=== PATIENT | male | born 1940 | race African-American/Black ===

== ENCOUNTER 2018-04-18 05:04 | Inpatient (IN) ==
[2018-04-17 12:09] LABS: Basophils % 0.8 % (0.0-0.8); Eosinophils # 0.4 10*3/uL (0.0-0.87); Eosinophils % 7.6 % (0.00-10.9); Hematocrit 37.5 VOL% (42.0-52.0); Hemoglobin 13.3 GM/DL (14.0-18.0); Immature Granulocytes % 0.2 %; Immature Granulocytes Absolute 0.01 #; Lymphocytes % 41.5 % (21.2-54.2); Mean Corpuscular HGB Conc 35.5 GM/DL (32-36); Mean Corpuscular Hemoglobin 32 PG (27-34); Mean Corpuscular Volume 89.1 FL (87-102); Mean Platelet Volume 8.7 FL (9.6-12.0); Monocytes # 0.5 10*3/uL (0.11-0.8); Monocytes % 9.7 % (1.7-12.7); Neutrophils % 40.2 % (38.7-73.9); Platelet Count 200 T/CUMM (130-400); Red Blood Count 4.21 MC/CUMM (3.8-5.5); Red Cell Distribution Width 12.4 % (9.3-17.3); White Blood Count 4.9 T/CUMM (4-12)
[2018-04-17 12:14] LABS: Apearance,Urine CLEAR (Clear); Bilirubin,Urine Negative (Negative); Blood, Urine Negative (Negative); Glucose,Urine (UA) Negative (Negative); Hyaline Casts,Urine 1 /LPF (0-3); Ketones,Urine Negative (Negative); Mucus,Urine Occasional /LPF (Occasional); Nitrite,Urine Negative (Negative); Protein,Urine Negative; Urine Color Yellow (Yellow); Urine Specific Gravity 1.015 (1.001-1.035); Urine Urobilinogen < 2.0 EU/DL (0.2-1.0); WBC,Urine 1 /HPF (0-6)
[2018-04-17 12:24] LABS: PT Patient Result 10.6 SECS; Partial Thromboplastin Time 29.2 SECS (0-40)
[2018-04-17 12:27] LABS: Calcium 8.7 MG/DL (8.5-10.1); Osmolality,Calculated 281.3 MOS/KG (273-304); Potassium 4.1 MMOL/L (3.5-5.1)
[~2018-04-18 05:04] MED LIST: SODIUM CHLORIDE 0.9% 1,000 ML IV PRN
[2018-04-18] MEDS ORDERED: PAPAVERINE 60 MG/2 ML VIAL ONE (05:16)
[2018-04-18] MEDS ORDERED: TISSUE ADHESIVE 1 EACH APPLICATOR TOP ONE (05:16)
[2018-04-18] MEDS ORDERED: VANCOMYCIN 1,000 MG VIAL ONE (05:17)
[2018-04-18] MEDS ORDERED: CEFUROXIME 1,500 MG VIAL ONE (05:58)
[2018-04-18] MEDS ORDERED: CEFUROXIME INJ 1,500 MG in SYRINGE 1 EACH IV ONE (06:00)
[2018-04-18] MEDS: LACTATED RINGERS 1,000 ML IV SCH (06:10)
[2018-04-18] MEDS ORDERED: AMINOCAPROIC ACID 5,000 MG/20 ML VIAL IV ONE (06:27)
[2018-04-18] MEDS ORDERED: LORazepam 1 MG TABLET PO ONE (06:36)
[2018-04-18 07:52] LABS: ABG Base Excess 0.5 MMOL/L (-2.5-2.5); ABG HCO3 24.9 MMOL/L (20-26); ABG PCO2 36.4 MM HG (35-48); ABG PH 7.434 (7.35-7.45); ABG TCO2 21.7 MMOL/L (23-27); Glucose Heart Surgery 107 MG/DL (74-106); Hematocrit Heart Surgery 34.9 PERCENT (42-52); Hemoglobin Heart Surgery 11.3 G/DL (14.0-18.0); Ionized Calcium Arterial 1.28 MMOL/L (1.21-1.46); PCO2 Patient Temp Arterial 36.4 MMHG; PH Patient Temp Arterial 7.434; Patient Temperature 37 CELCIUS; Potassium Heart/CVR 3.8 MMOL/L (3.5-5.1); Sodium Heart/CVR 139 MMOL/L (135-145)
[2018-04-18 08:09] LABS: Apearance,Urine CLEAR (Clear); Bilirubin,Urine Negative (Negative); Blood, Urine Negative (Negative); Glucose,Urine (UA) Negative (Negative); Ketones,Urine Negative (Negative); Mucus,Urine Occasional /LPF (Occasional); Nitrite,Urine Negative (Negative); Protein,Urine Negative; RBC,Urine 1 /HPF (0-4); Urine Color Yellow (Yellow); Urine Specific Gravity 1.012 (1.001-1.035); Urine Urobilinogen < 2.0 EU/DL (0.2-1.0); WBC,Urine <1 /HPF (0-6)
[2018-04-18] MEDS ORDERED: PHENYLEPHRINE DRIP 40 MG/250 ML PREMIX IV ONE (08:47)
[2018-04-18] MEDS ORDERED: CALCIUM CHLORIDE 1,000 MG/10 ML SYRINGE IV ONE (08:47)
[2018-04-18] MEDS ORDERED: POTASSIUM CHLORIDE RIDER 100 ML IV ONE (08:47)
[2018-04-18] MEDS ORDERED: NITROGLYCERIN DRIP 0 MG/0 ML BOTTLE IV ONE (08:48)
[2018-04-18] MEDS ORDERED: SODIUM BICARBONATE 50 MEQ/50 ML SYRINGE IV ONE ×2 (08:48→10:45)
[2018-04-18] MEDS ORDERED: EPINEPHrine 1 MG/10 ML SYRINGE ONE (08:49)
[2018-04-18] MEDS ORDERED: ALBUMIN 5% 12.5 GM/250 ML VIAL IV ONE ×3 (08:49→12:46)
[2018-04-18 09:14] LABS: Hemoglobin Heart Surgery 7.8 G/DL (14.0-18.0); PCO2 Patient Temp Venous 25.2 MM HG; PH Patient Temp Venous 7.59; PO2 Patient Temp Venous 38.2 MM HG; Potassium Heart/CVR 4.7 MMOL/L (3.5-5.1); VBG Base Excess 1.8 MEQ/L (0-4); VBG HCO3 24.2 MEQ/L (24-28); VBG Oxygen Saturation 83.8 %; VBG PCO2 28.7 MMHG (41-51); VBG PH 7.543; VBG PO2 47.2 MMHG (17-40)
[2018-04-18 09:58] LABS: Hemoglobin Heart Surgery 9.1 G/DL (14.0-18.0); PCO2 Patient Temp Venous 29.7 MM HG; PH Patient Temp Venous 7.532; PO2 Patient Temp Venous 56.5 MM HG; Potassium Heart/CVR 4.6 MMOL/L (3.5-5.1); VBG Base Excess 1.7 MEQ/L (0-4); VBG Oxygen Saturation 93.1 %; VBG PCO2 33.9 MMHG (41-51); VBG PH 7.486; VBG PO2 69.3 MMHG (17-40)
[2018-04-18 10:19] LABS: Hemoglobin Heart Surgery 8.2 G/DL (14.0-18.0); PCO2 Patient Temp Venous 37.1 MM HG; PH Patient Temp Venous 7.453; PO2 Patient Temp Venous 42.9 MM HG; Potassium Heart/CVR 4.7 MMOL/L (3.5-5.1); VBG Base Excess 1.4 MEQ/L (0-4); VBG HCO3 25.4 MEQ/L (24-28); VBG Oxygen Saturation 74.8 %; VBG PCO2 37.1 MMHG (41-51); VBG PH 7.453; VBG PO2 42.9 MMHG (17-40)
[2018-04-18] MEDS ORDERED: THROMBIN TOPICAL (RECOMBINANT) 5,000 UNIT VIAL TOP ONE (10:42)
[2018-04-18] MEDS ORDERED: DEXTROSE 5% KCL 20 MEQ 20 MEQ/1,000 ML BAG IV ONE (10:44)
[2018-04-18] MEDS ORDERED: PROTAMINE SULFATE 250 MG/25 ML VIAL IV ONE (10:45)
[2018-04-18] MEDS ORDERED: ALBUMIN 25% 25 GM/100 ML VIAL IV ONE (10:45)
[2018-04-18] MEDS ORDERED: methylPREDNISolone SOD SUC 1,000 MG/8 ML VIAL ONE (10:45)
[2018-04-18] MEDS ORDERED: MAGNESIUM SULFATE 10 GM/20 ML VIAL IV ONE (10:45)
[2018-04-18] MEDS ORDERED: MANNITOL 12.5 GM/50 ML VIAL IV ONE (10:45)
[2018-04-18] MEDS ORDERED: HEPARIN 10,000 UNIT/10 ML VIAL ONE (10:45)
[2018-04-18] MEDS ORDERED: FUROSEMIDE 20 MG/2 ML VIAL ONE (10:46)
[2018-04-18 10:54] LABS: ABG Base Excess -1.3 MMOL/L (-2.5-2.5); ABG HCO3 23.3 MMOL/L (20-26); ABG PCO2 34.3 MM HG (35-48); ABG PH 7.427 (7.35-7.45); ABG TCO2 21.2 MMOL/L (23-27); Ionized Calcium Arterial 1.18 MMOL/L (1.21-1.46); Potassium Heart/CVR 3.9 MMOL/L (3.5-5.1); Sodium Heart/CVR 136 MMOL/L (135-145)
[2018-04-18 10:55] LABS: Glucose Heart Surgery 176 MG/DL (74-106); Hematocrit Heart Surgery 24.2 PERCENT (42-52); Hemoglobin Heart Surgery 7.8 G/DL (14.0-18.0); PCO2 Patient Temp Arterial 34.3 MMHG; PH Patient Temp Arterial 7.427; Patient Temperature 37 CELCIUS
[2018-04-18] MEDS: SODIUM CHLORIDE 0.45% 1,000 ML IV SCH (12:00)
[2018-04-18] MEDS ORDERED: SODIUM CHLORIDE 0.9% 250 ML IV PRN (12:01)
[2018-04-18] MEDS ORDERED: DEXTROSE 50% 25 GM/50 ML VIAL IV PRN ×2 (12:01)
[2018-04-18] MEDS ORDERED: MAGNESIUM SULF RIDER 2 GM in PREMIX 1 EACH IV PRN (12:01)
[2018-04-18] MEDS ORDERED: MAGNESIUM SULF RIDER 4 GM in PREMIX 1 EACH IV PRN (12:01)
[2018-04-18] MEDS ORDERED: INSULIN REGULAR 100 UNIT/ML IV PRN (12:01)
[2018-04-18] MEDS ORDERED: CHLORHEXIDINE 4% SOLN 118 ML BOTTLE TOP PRN (12:01)
[2018-04-18] MEDS ORDERED: CALCIUM CHLORIDE 1,000 MG/10 ML SYRINGE IV PRN (12:01)
[2018-04-18] MEDS ORDERED: ACETAMINOPHEN 650 MG SUPP RECTAL PRN (12:01)
[2018-04-18] MEDS: ALBUMIN 5% 12.5 GM in PREMIX 1 EACH IV PRN ×4 (12:13→15:18)
[2018-04-18] MEDS ORDERED: HEPARIN/NACL 0.9% 2 UNITS/ML 500 ML IV ONE (12:17)
[2018-04-18] MEDS ORDERED: PHENYLEPHRINE DRIP 20 MG/250 ML PREMIX IV ONE (12:17)
[2018-04-18] MEDS ORDERED: CALCIUM CHLORIDE 1,000 MG/10 ML VIAL IV ONE (12:17)
[2018-04-18] MEDS ORDERED: VECURONIUM 10 MG VIAL IV ONE (12:18)
[2018-04-18] MEDS ORDERED: SODIUM CHLORIDE 0.9% 250 ML IV ONE (12:18)
[2018-04-18] MEDS ORDERED: SODIUM CHLORIDE 0.9% 100 ML IV ONE (12:18)
[2018-04-18] MEDS ORDERED: SUFentanil 250 MCG/5 ML AMP ONE (12:18)
[2018-04-18] MEDS ORDERED: LACTATED RINGERS 1,000 ML IV ONE (12:18)
[2018-04-18] MEDS ORDERED: MIDAZOLAM 10 MG/2 ML VIAL ONE (12:18)
[2018-04-18] MEDS ORDERED: SEVOFLURANE 1 UNIT/15 MINUTE INH ONE (12:18)
[2018-04-18] MEDS ORDERED: NITROGLYCERIN DRIP 50 MG/250 ML BOTTLE IV ONE (12:18)
[2018-04-18] MEDS: SODIUM CHLORIDE 0.9% 1,000 ML IV PRN ×4 (12:21→17:15)
[2018-04-18] MEDS ORDERED: INSULIN REGULAR DRIP 100 ML IV SCH (12:30)
[2018-04-18] MEDS ORDERED: SODIUM CHLORIDE 0.45% 1,000 ML IV SCH (12:30)
[2018-04-18 12:48] LABS: ABG Base Excess -1.5 MMOL/L (-2.5-2.5); ABG HCO3 23.2 MMOL/L (20-26); ABG PCO2 29.5 MM HG (35-48); ABG PH 7.476 (7.35-7.45); ABG TCO2 20.8 MMOL/L (23-27); Glucose Heart Surgery 138 MG/DL (74-106); Hematocrit Heart Surgery 18.2 PERCENT (42-52); Potassium Heart/CVR 3.7 MMOL/L (3.5-5.1)
[2018-04-18 12:50] LABS: Basophils % 0.2 % (0.0-0.8); Eosinophils # 0.1 10*3/uL (0.0-0.87); Eosinophils % 1.2 % (0.00-10.9); Hemoglobin Heart Surgery 5.8 G/DL (14.0-18.0); Immature Granulocytes % 0.5 %; Immature Granulocytes Absolute 0.03 #; Lymphocytes # 0.8 10*3/uL (1.4-4.0); Lymphocytes % 13.1 % (21.2-54.2); Mean Corpuscular HGB Conc 36.3 GM/DL (32-36); Mean Corpuscular Hemoglobin 33 PG (27-34); Mean Corpuscular Volume 89.7 FL (87-102); Mean Platelet Volume 8.8 FL (9.6-12.0); Monocytes # 0.3 10*3/uL (0.11-0.8); Monocytes % 4.9 % (1.7-12.7); Neutrophils # 4.8 10*3/uL (1.4-7.4); Neutrophils % 80.1 % (38.7-73.9); Platelet Count 140 T/CUMM (130-400); Red Blood Count 1.75 MC/CUMM (3.8-5.5); Red Cell Distribution Width 12.3 % (9.3-17.3)
[2018-04-18 12:55] LABS: Hemoglobin 5.7 GM/DL (14.0-18.0)
[2018-04-18 12:56] LABS: Hematocrit 15.7 VOL% (42.0-52.0); INR 1.2; PT Patient Result 12.7 SECS
[2018-04-18 13:08] LABS: Lactic Acid 4.4 MMOL/L (0.4-2.0)
[2018-04-18] MEDS: POTASSIUM CHLORIDE RIDER 20 MEQ in PREMIX 1 EACH IV PRN ×2 (13:28→16:39)
[2018-04-18 13:31] LABS: Blood Urea Nitrogen 16 MG/DL (7-18); Calcium 9.8 MG/DL (8.5-10.1); Glucose 138 MG/DL (74-106); Potassium 3.9 MMOL/L (3.5-5.1); Sodium 143 MMOL/L (136-145)
[2018-04-18] MEDS: POTASSIUM CHLORIDE RIDER 10 MEQ in PREMIX 1 EACH IV PRN ×2 (14:00→18:39)
[2018-04-18] MEDS: INSULIN REGULAR 100 UNIT/ML SUBCUT SCH ×3 (16:00→20:24)
[2018-04-18 16:20] LABS: ABG HCO3 18.5 MMOL/L (20-26); ABG Oxygen Saturation 97.7 % (95-100); ABG PCO2 28.2 MM HG (35-48); ABG PH 7.434 (7.35-7.45); ABG TCO2 19.3 MMOL/L (23-27); Glucose Heart Surgery 146 MG/DL (74-106); Hemoglobin Heart Surgery 8.3 G/DL (14.0-18.0)
[2018-04-18] MEDS ORDERED: INFLUENZA VIRUS VACCINE 0.5 ML SYRINGE IM ONE (18:04)
[2018-04-18 18:21] LABS: ABG Base Excess -3.8 MMOL/L (-2.5-2.5); ABG HCO3 20.6 MMOL/L (20-26); ABG Oxygen Saturation 97.5 % (95-100); ABG PH 7.388 (7.35-7.45); ABG PO2 116.9 MM HG (80-95); ABG TCO2 21.7 MMOL/L (23-27); Glucose Heart Surgery 157 MG/DL (74-106); Hemoglobin Heart Surgery 9.8 G/DL (14.0-18.0); Potassium Heart/CVR 4.6 MMOL/L (3.5-5.1)
[2018-04-18] MEDS: CEFUROXIME INJ 1,500 MG in SYRINGE 1 EACH IV SCH (19:48)
[2018-04-18] MEDS: MORPHINE 4 MG/1 ML VIAL IV PRN (20:17)
[2018-04-18] MEDS ORDERED: METOPROLOL TARTRATE 5 MG/5 ML VIAL IV ONE (20:37)
[2018-04-18] MEDS: CHLORHEXIDINE 0.12% ORAL RINSE 60 ML BOTTLE SWISH/SPIT SCH (20:40)
[2018-04-18] MEDS: ONDANSETRON 4 MG/2 ML VIAL IV PRN (22:19)
[2018-04-19] MEDS: SODIUM CHLORIDE 0.45% 1,000 ML IV SCH ×3 (00:25→21:30)
[2018-04-19] MEDS: INSULIN REGULAR 100 UNIT/ML SUBCUT SCH ×7 (00:27→23:58)
[2018-04-19] MEDS: MORPHINE 4 MG/1 ML VIAL IV PRN ×2 (00:52→07:33)
[2018-04-19] MEDS: MORPHINE 10 MG/1 ML VIAL IV PRN ×2 (02:14→10:44)
[2018-04-19 04:19] LABS: ABG Base Excess -15.3 MMOL/L (-2.5-2.5); ABG HCO3 11.2 MMOL/L (20-26); ABG Oxygen Saturation 96.4 % (95-100); ABG PO2 105.7 MM HG (80-95); ABG TCO2 12.1 MMOL/L (23-27); Glucose Heart Surgery 217 MG/DL (74-106); Hemoglobin Heart Surgery 10.4 G/DL (14.0-18.0); Potassium Heart/CVR 4.2 MMOL/L (3.5-5.1)
[2018-04-19 04:20] LABS: ABG PH 7.206 (7.35-7.45)
[2018-04-19 04:21] LABS: Basophils % 0.1 % (0.0-0.8); Hematocrit 29.3 VOL% (42.0-52.0); Immature Granulocytes % 0.5 %; Immature Granulocytes Absolute 0.08 #; Lymphocytes # 0.5 10*3/uL (1.4-4.0); Lymphocytes % 3.6 % (21.2-54.2); Mean Corpuscular HGB Conc 33.4 GM/DL (32-36); Mean Corpuscular Hemoglobin 31 PG (27-34); Mean Corpuscular Volume 91.8 FL (87-102); Mean Platelet Volume 9.7 FL (9.6-12.0); Monocytes # 0.9 10*3/uL (0.11-0.8); Monocytes % 5.8 % (1.7-12.7); Neutrophils # 13.6 10*3/uL (1.4-7.4); Platelet Count 260 T/CUMM (130-400); Red Blood Count 3.19 MC/CUMM (3.8-5.5); White Blood Count 15.1 T/CUMM (4-12)
[2018-04-19 04:25] LABS: Hemoglobin 9.8 GM/DL (14.0-18.0)
[2018-04-19 04:45] LABS: Calcium 8.3 MG/DL (8.5-10.1); Potassium 4.2 MMOL/L (3.5-5.1)
[2018-04-19] MEDS: POTASSIUM CHLORIDE RIDER 20 MEQ in PREMIX 1 EACH IV PRN ×2 (04:47→09:51)
[2018-04-19] MEDS ORDERED: SODIUM BICARBONATE 50 MEQ/50 ML SYRINGE IV ONE ×2 (04:58→05:30)
[2018-04-19 05:07] LABS: Band Neutrophils 3 % (0-10); Lymphocytes 5 % (20-55); Segmented Neutrophils 91 % (50-85); Total Cells Counted 100
[2018-04-19 05:08] LABS: Burr Cells Few; Platelet Estimate Normal
[2018-04-19 05:27] LABS: Lactic Acid 10.8 MMOL/L (0.4-2.0)
[2018-04-19] MEDS: ONDANSETRON 4 MG/2 ML VIAL IV PRN (06:34)
[2018-04-19 06:43] LABS: ABG Base Excess -10.6 MMOL/L (-2.5-2.5); ABG PCO2 30.8 MM HG (35-48); ABG PH 7.294 (7.35-7.45); ABG TCO2 13.8 MMOL/L (23-27); Glucose Heart Surgery 206 MG/DL (74-106); Hemoglobin Heart Surgery 9.7 G/DL (14.0-18.0); Potassium Heart/CVR 4.4 MMOL/L (3.5-5.1)
[2018-04-19] MEDS: LACTATED RINGERS 1,000 ML IV SCH (06:44)
[2018-04-19] MEDS ORDERED: MIDAZOLAM 2 MG/2 ML VIAL IV ONE (06:48)
[2018-04-19] MEDS: MIDAZOLAM 2 MG/2 ML VIAL IV PRN ×2 (06:51→07:54)
[2018-04-19] MEDS: SODIUM BICARB INJ 50 MEQ in SODIUM CHLORIDE 0.45% 950 ML IV SCH ×2 (07:09→16:02)
[2018-04-19] MEDS ORDERED: PROPOFOL 1,000 MG/100 ML BOTTLE IV ONE (08:25)
[2018-04-19] MEDS ORDERED: FUROSEMIDE 40 MG/4 ML VIAL IV ONE (08:30)
[2018-04-19] MEDS: PROPOFOL 1,000 MG/100 ML BOTTLE IV SCH ×3 (08:31→20:27)
[2018-04-19] MEDS ORDERED: ASPIRIN EC 325 MG TABLET PO SCH (09:00)
[2018-04-19] MEDS: CEFUROXIME INJ 1,500 MG in SYRINGE 1 EACH IV SCH ×2 (09:02→20:26)
[2018-04-19] MEDS ORDERED: ALBUMIN 5% 12.5 GM in PREMIX 1 EACH IV ONE (09:29)
[2018-04-19] MEDS ORDERED: LACTATED RINGERS 500 ML IV ONE (09:33)
[2018-04-19] MEDS: FUROSEMIDE 40 MG TABLET PO SCH (09:42)
[2018-04-19] MEDS: PANTOPRAZOLE 40 MG VIAL IV SCH (09:42)
[2018-04-19] MEDS: CHLORHEXIDINE 0.12% ORAL RINSE 60 ML BOTTLE SWISH/SPIT SCH ×2 (09:48→20:27)
[2018-04-19] MEDS: ALBUMIN 5% 25 GM in PREMIX 1 EACH IV ONE ×2 (10:17→10:19)
[2018-04-19 11:11] LABS: Lactic Acid 5.1 MMOL/L (0.4-2.0)
[2018-04-19] MEDS: METOPROLOL TARTRATE 25 MG TABLET PO SCH ×2 (12:51→20:26)
[2018-04-19] MEDS: ATORVASTATIN 40 MG TABLET PO SCH (20:26)
[2018-04-20] MEDS: MORPHINE 10 MG/1 ML VIAL IV PRN (00:11)
[2018-04-20] MEDS: ALBUMIN 5% 12.5 GM in PREMIX 1 EACH IV PRN (01:36)
[2018-04-20 02:09] LABS: ABG Base Excess 2.7 MMOL/L (-2.5-2.5); ABG HCO3 26.2 MMOL/L (20-26); ABG Oxygen Saturation 94.8 % (95-100); ABG PCO2 35.7 MM HG (35-48); ABG PH 7.484 (7.35-7.45); ABG PO2 79.8 MM HG (80-95); ABG TCO2 27.3 MMOL/L (23-27)
[2018-04-20 02:14] LABS: Basophils % 0.1 % (0.0-0.8); Eosinophils % 0.1 % (0.00-10.9); Hemoglobin 7.3 GM/DL (14.0-18.0); Immature Granulocytes % 0.8 %; Immature Granulocytes Absolute 0.07 #; Lymphocytes # 1.2 10*3/uL (1.4-4.0); Lymphocytes % 12.9 % (21.2-54.2); Mean Corpuscular HGB Conc 34.8 GM/DL (32-36); Mean Corpuscular Hemoglobin 32 PG (27-34); Mean Corpuscular Volume 90.9 FL (87-102); Mean Platelet Volume 9.9 FL (9.6-12.0); Monocytes # 0.8 10*3/uL (0.11-0.8); Monocytes % 9.1 % (1.7-12.7); Neutrophils # 6.8 10*3/uL (1.4-7.4); Red Blood Count 2.31 MC/CUMM (3.8-5.5); Red Cell Distribution Width 14.2 % (9.3-17.3); White Blood Count 8.9 T/CUMM (4-12)
[2018-04-20 02:15] LABS: Platelet Count 109 T/CUMM (130-400)
[2018-04-20 02:27] LABS: Calcium 7.3 MG/DL (8.5-10.1)
[2018-04-20 02:53] LABS: Hypochromasia 1+; Platelet Estimate Adequate
[2018-04-20 02:54] LABS: Anisocytosis 1+; Microcytosis 1+
[2018-04-20] MEDS ORDERED: FUROSEMIDE 40 MG/4 ML VIAL IV ONE ×2 (03:00→14:30)
[2018-04-20] MEDS: PROPOFOL 1,000 MG/100 ML BOTTLE IV SCH ×2 (03:10→08:15)
[2018-04-20] MEDS: INSULIN REGULAR 100 UNIT/ML SUBCUT SCH ×6 (03:24→23:53)
[2018-04-20] MEDS: LACTATED RINGERS 1,000 ML IV SCH (07:00)
[2018-04-20] MEDS: SODIUM CHLORIDE 0.45% 1,000 ML IV SCH ×3 (08:00→21:30)
[2018-04-20] MEDS: DEXMEDETOMIDINE 200 MCG in SODIUM CHLORIDE 0.9% 48 ML IV PRN ×2 (08:00→13:40)
[2018-04-20] MEDS: PANTOPRAZOLE 40 MG VIAL IV SCH (08:45)
[2018-04-20] MEDS: FUROSEMIDE 40 MG TABLET PO SCH (08:50)
[2018-04-20] MEDS: CHLORHEXIDINE 0.12% ORAL RINSE 60 ML BOTTLE SWISH/SPIT SCH ×2 (08:50→20:39)
[2018-04-20] MEDS: METOPROLOL TARTRATE 25 MG TABLET PO SCH ×2 (08:50→20:39)
[2018-04-20] MEDS: ASPIRIN 325 MG TABLET PER TUBE SCH (08:50)
[2018-04-20] MEDS ORDERED: METOPROLOL TARTRATE 5 MG/5 ML VIAL IV ONE ×2 (09:57→10:30)
[2018-04-20] MEDS: MORPHINE 4 MG/1 ML VIAL IV PRN ×2 (11:20→21:59)
[2018-04-20] MEDS ORDERED: HEPARIN/NACL 0.9% 2 UNITS/ML 500 ML IV ONE (11:25)
[2018-04-20 13:59] LABS: ABG Base Excess 3.1 MMOL/L (-2.5-2.5); ABG HCO3 27.1 MMOL/L (20-26); ABG Oxygen Saturation 93.5 % (95-100); ABG PCO2 37.4 MM HG (35-48); ABG PH 7.464 (7.35-7.45); ABG PO2 64.2 MM HG (80-95); ABG TCO2 23.9 MMOL/L (23-27); Glucose Heart Surgery 132 MG/DL (74-106); Hematocrit Heart Surgery 35.3 PERCENT (42-52); Hemoglobin Heart Surgery 11.5 G/DL (14.0-18.0)
[2018-04-20] MEDS: ATORVASTATIN 40 MG TABLET PO SCH (20:39)
[2018-04-21] MEDS: SODIUM CHLORIDE 0.45% 1,000 ML IV SCH ×2 (01:30→11:13)
[2018-04-21 03:55] LABS: Basophils % 0.1 % (0.0-0.8); Eosinophils # 0.1 10*3/uL (0.0-0.87); Eosinophils % 1.1 % (0.00-10.9); Hematocrit 31.2 VOL% (42.0-52.0); Hemoglobin 11.2 GM/DL (14.0-18.0); Immature Granulocytes % 0.5 %; Immature Granulocytes Absolute 0.05 #; Lymphocytes # 1.3 10*3/uL (1.4-4.0); Lymphocytes % 12.5 % (21.2-54.2); Mean Corpuscular HGB Conc 35.9 GM/DL (32-36); Mean Corpuscular Hemoglobin 32 PG (27-34); Mean Corpuscular Volume 87.9 FL (87-102); Mean Platelet Volume 9.7 FL (9.6-12.0); Monocytes # 0.7 10*3/uL (0.11-0.8); Neutrophils # 7.9 10*3/uL (1.4-7.4); Neutrophils % 78.8 % (38.7-73.9); Platelet Count 104 T/CUMM (130-400); Red Blood Count 3.55 MC/CUMM (3.8-5.5); Red Cell Distribution Width 13.6 % (9.3-17.3)
[2018-04-21 04:03] LABS: Calcium 7.8 MG/DL (8.5-10.1); Osmolality,Calculated 281.4 MOS/KG (273-304); Potassium 3.6 MMOL/L (3.5-5.1)
[2018-04-21] MEDS: INSULIN REGULAR 100 UNIT/ML SUBCUT SCH ×6 (04:08→23:00)
[2018-04-21] MEDS: LACTATED RINGERS 1,000 ML IV SCH (08:18)
[2018-04-21] MEDS: MORPHINE 4 MG/1 ML VIAL IV PRN (08:26)
[2018-04-21] MEDS: PROPOFOL 1,000 MG/100 ML BOTTLE IV SCH (08:31)
[2018-04-21] MEDS: ASPIRIN 325 MG TABLET PER TUBE SCH (08:54)
[2018-04-21] MEDS: FUROSEMIDE 40 MG TABLET PO SCH (08:55)
[2018-04-21] MEDS: PANTOPRAZOLE 40 MG VIAL IV SCH (08:55)
[2018-04-21] MEDS: METOPROLOL TARTRATE 25 MG TABLET PO SCH ×2 (08:55→21:04)
[2018-04-21] MEDS: CHLORHEXIDINE 0.12% ORAL RINSE 60 ML BOTTLE SWISH/SPIT SCH ×2 (09:03→21:04)
[2018-04-21] MEDS ORDERED: FUROSEMIDE 40 MG/4 ML VIAL IV ONE (10:28)
[2018-04-21] MEDS ORDERED: SUCCINYLCHOLINE 200 MG/10 ML VIAL ONE (10:46)
[2018-04-21] MEDS ORDERED: ETOMIDATE 20 MG/10 ML VIAL IV ONE (10:50)
[2018-04-21] MEDS: ATORVASTATIN 40 MG TABLET PO SCH (21:04)
[2018-04-21] MEDS: GABAPENTIN 300 MG CAPSULE PO SCH (21:04)
[2018-04-21] MEDS: SIMETHICONE CHEW 125 MG TABLET PO PRN (21:50)
[2018-04-22] MEDS: INSULIN REGULAR 100 UNIT/ML SUBCUT SCH ×5 (03:46→20:47)
[2018-04-22 05:16] LABS: Basophils % 0.2 % (0.0-0.8); Eosinophils # 0.4 10*3/uL (0.0-0.87); Eosinophils % 3.8 % (0.00-10.9); Hematocrit 31.7 VOL% (42.0-52.0); Hemoglobin 10.7 GM/DL (14.0-18.0); Immature Granulocytes % 0.4 %; Immature Granulocytes Absolute 0.04 #; Lymphocytes # 1.6 10*3/uL (1.4-4.0); Lymphocytes % 16.6 % (21.2-54.2); Mean Corpuscular HGB Conc 33.8 GM/DL (32-36); Mean Corpuscular Hemoglobin 31 PG (27-34); Mean Corpuscular Volume 92.2 FL (87-102); Monocytes # 0.7 10*3/uL (0.11-0.8); Monocytes % 7.6 % (1.7-12.7); Neutrophils # 6.7 10*3/uL (1.4-7.4); Neutrophils % 71.4 % (38.7-73.9); Platelet Count 133 T/CUMM (130-400); Red Blood Count 3.44 MC/CUMM (3.8-5.5); Red Cell Distribution Width 13.4 % (9.3-17.3); White Blood Count 9.3 T/CUMM (4-12)
[2018-04-22 05:51] LABS: Calcium 7.2 MG/DL (8.5-10.1); Osmolality,Calculated 279.5 MOS/KG (273-304); Potassium 3.4 MMOL/L (3.5-5.1)
[2018-04-22] MEDS: LACTATED RINGERS 1,000 ML IV SCH (08:00)
[2018-04-22] MEDS: FUROSEMIDE 40 MG TABLET PO SCH (08:15)
[2018-04-22] MEDS: METOPROLOL TARTRATE 25 MG TABLET PO SCH ×2 (08:16→20:47)
[2018-04-22] MEDS: PANTOPRAZOLE 40 MG VIAL IV SCH (08:16)
[2018-04-22] MEDS: ASPIRIN 325 MG TABLET PER TUBE SCH (08:16)
[2018-04-22] MEDS: POTASSIUM CHLORIDE RIDER 20 MEQ in PREMIX 1 EACH IV PRN ×2 (08:16→10:16)
[2018-04-22] MEDS: CHLORHEXIDINE 0.12% ORAL RINSE 60 ML BOTTLE SWISH/SPIT SCH ×2 (08:38→20:47)
[2018-04-22] MEDS: MORPHINE 4 MG/1 ML VIAL IV PRN (18:51)
[2018-04-22] MEDS: GABAPENTIN 300 MG CAPSULE PO SCH (20:47)
[2018-04-22] MEDS: ATORVASTATIN 40 MG TABLET PO SCH (20:47)
[2018-04-22] MEDS ORDERED: METOPROLOL TARTRATE 25 MG TABLET PO ONE (21:30)
[2018-04-22] MEDS ORDERED: METOPROLOL TARTRATE 5 MG/5 ML VIAL IV ONE (23:00)
[2018-04-23 06:17] LABS: Basophils % 0.4 % (0.0-0.8); Eosinophils # 0.6 10*3/uL (0.0-0.87); Eosinophils % 6.3 % (0.00-10.9); Hematocrit 34.7 VOL% (42.0-52.0); Hemoglobin 11.6 GM/DL (14.0-18.0); Immature Granulocytes % 0.6 %; Immature Granulocytes Absolute 0.06 #; Lymphocytes # 1.4 10*3/uL (1.4-4.0); Lymphocytes % 14.4 % (21.2-54.2); Mean Corpuscular HGB Conc 33.4 GM/DL (32-36); Mean Corpuscular Hemoglobin 31 PG (27-34); Mean Corpuscular Volume 91.8 FL (87-102); Mean Platelet Volume 9.5 FL (9.6-12.0); Monocytes # 0.8 10*3/uL (0.11-0.8); Monocytes % 8.2 % (1.7-12.7); Neutrophils # 6.8 10*3/uL (1.4-7.4); Neutrophils % 70.1 % (38.7-73.9); Platelet Count 165 T/CUMM (130-400); Red Blood Count 3.78 MC/CUMM (3.8-5.5); Red Cell Distribution Width 13.2 % (9.3-17.3); White Blood Count 9.8 T/CUMM (4-12)
[2018-04-23] MEDS: LACTATED RINGERS 1,000 ML IV SCH (06:36)
[2018-04-23 06:43] LABS: Calcium 7.8 MG/DL (8.5-10.1); Osmolality,Calculated 279.5 MOS/KG (273-304); Potassium 3.7 MMOL/L (3.5-5.1)
[2018-04-23] MEDS: INSULIN REGULAR 100 UNIT/ML SUBCUT SCH ×4 (08:50→21:05)
[2018-04-23] MEDS: CHLORHEXIDINE 0.12% ORAL RINSE 60 ML BOTTLE SWISH/SPIT SCH ×2 (08:55→21:05)
[2018-04-23] MEDS: ASPIRIN 325 MG TABLET PER TUBE SCH (08:55)
[2018-04-23] MEDS: PANTOPRAZOLE 40 MG VIAL IV SCH (08:55)
[2018-04-23] MEDS: POTASSIUM CHLORIDE RIDER 20 MEQ in PREMIX 1 EACH IV PRN (08:55)
[2018-04-23] MEDS: FUROSEMIDE 40 MG TABLET PO SCH (08:55)
[2018-04-23] MEDS ORDERED: METOPROLOL TARTRATE 25 MG TABLET PO SCH (09:00)
[2018-04-23] MEDS: SIMETHICONE CHEW 125 MG TABLET PO PRN (12:57)
[2018-04-23] MEDS: METOPROLOL TARTRATE 50 MG TABLET PO SCH (21:04)
[2018-04-23] MEDS: GABAPENTIN 300 MG CAPSULE PO SCH (21:04)
[2018-04-23] MEDS: ATORVASTATIN 40 MG TABLET PO SCH (21:05)
[2018-04-24] MEDS: MORPHINE 4 MG/1 ML VIAL IV PRN (01:48)
[2018-04-24 05:07] LABS: Basophils % 0.4 % (0.0-0.8); Eosinophils # 0.6 10*3/uL (0.0-0.87); Eosinophils % 5.9 % (0.00-10.9); Hematocrit 32.6 VOL% (42.0-52.0); Immature Granulocytes % 0.6 %; Immature Granulocytes Absolute 0.07 #; Lymphocytes # 1.7 10*3/uL (1.4-4.0); Lymphocytes % 15.7 % (21.2-54.2); Mean Corpuscular HGB Conc 33.7 GM/DL (32-36); Mean Corpuscular Hemoglobin 31 PG (27-34); Mean Corpuscular Volume 92.1 FL (87-102); Mean Platelet Volume 9.6 FL (9.6-12.0); Monocytes % 9.2 % (1.7-12.7); Neutrophils # 7.4 10*3/uL (1.4-7.4); Neutrophils % 68.2 % (38.7-73.9); Platelet Count 178 T/CUMM (130-400); Red Blood Count 3.54 MC/CUMM (3.8-5.5); White Blood Count 10.9 T/CUMM (4-12)
[2018-04-24] MEDS ORDERED: BISACODYL 5 MG TABLET PO PRN (05:35)
[2018-04-24 05:41] LABS: Calcium 7.5 MG/DL (8.5-10.1); Osmolality,Calculated 277.5 MOS/KG (273-304); Potassium 3.9 MMOL/L (3.5-5.1)
[2018-04-24] MEDS: LACTATED RINGERS 1,000 ML IV SCH (06:16)
[2018-04-24] MEDS: INSULIN REGULAR 100 UNIT/ML SUBCUT SCH ×4 (08:49→21:34)
[2018-04-24] MEDS: FUROSEMIDE 40 MG TABLET PO SCH (09:58)
[2018-04-24] MEDS: ASPIRIN 325 MG TABLET PER TUBE SCH (09:58)
[2018-04-24] MEDS: DOCUSATE SODIUM 100 MG CAPSULE PO SCH ×2 (09:59→21:33)
[2018-04-24] MEDS: METOPROLOL TARTRATE 50 MG TABLET PO SCH ×2 (09:59→21:33)
[2018-04-24] MEDS: CHLORHEXIDINE 0.12% ORAL RINSE 60 ML BOTTLE SWISH/SPIT SCH ×2 (10:01→21:40)
[2018-04-24] MEDS: PANTOPRAZOLE 40 MG VIAL IV SCH (10:03)
[2018-04-24] MEDS ORDERED: FUROSEMIDE 40 MG/4 ML VIAL IV ONE ×2 (10:16→15:55)
[2018-04-24] MEDS: ENALAPRIL 5 MG TABLET PO SCH (12:20)
[2018-04-24] MEDS: SIMETHICONE CHEW 125 MG TABLET PO PRN (21:31)
[2018-04-24] MEDS: POTASSIUM CHLORIDE 20 MEQ TABLET PO SCH (21:33)
[2018-04-24] MEDS: GABAPENTIN 300 MG CAPSULE PO SCH (21:33)
[2018-04-24] MEDS: ATORVASTATIN 40 MG TABLET PO SCH (21:33)
[2018-04-25 04:45] LABS: Basophils % 0.3 % (0.0-0.8); Eosinophils # 0.4 10*3/uL (0.0-0.87); Eosinophils % 2.6 % (0.00-10.9); Hematocrit 33.8 VOL% (42.0-52.0); Hemoglobin 11.5 GM/DL (14.0-18.0); Immature Granulocytes Absolute 0.15 #; Lymphocytes # 1.4 10*3/uL (1.4-4.0); Lymphocytes % 9.1 % (21.2-54.2); Mean Corpuscular Hemoglobin 31 PG (27-34); Mean Corpuscular Volume 90.9 FL (87-102); Mean Platelet Volume 9.4 FL (9.6-12.0); Monocytes # 1.2 10*3/uL (0.11-0.8); Monocytes % 8.3 % (1.7-12.7); Neutrophils # 11.7 10*3/uL (1.4-7.4); Neutrophils % 78.7 % (38.7-73.9); Platelet Count 212 T/CUMM (130-400); Red Blood Count 3.72 MC/CUMM (3.8-5.5); Red Cell Distribution Width 13.1 % (9.3-17.3); White Blood Count 14.8 T/CUMM (4-12)
[2018-04-25 05:05] LABS: Osmolality,Calculated 274.8 MOS/KG (273-304); Potassium 3.9 MMOL/L (3.5-5.1)
[2018-04-25] MEDS ORDERED: FUROSEMIDE 80 MG TABLET PO SCH (09:00)
[2018-04-25] MEDS ORDERED: LOSARTAN 25 MG TABLET PO SCH (09:30)
[2018-04-25] MEDS: PANTOPRAZOLE 40 MG VIAL IV SCH (10:02)
[2018-04-25] MEDS: DOCUSATE SODIUM 100 MG CAPSULE PO SCH (10:02)
[2018-04-25] MEDS: METOPROLOL TARTRATE 50 MG TABLET PO SCH (10:02)
[2018-04-25] MEDS: POTASSIUM CHLORIDE 20 MEQ TABLET PO SCH (10:02)
[2018-04-25] MEDS: ASPIRIN 325 MG TABLET PER TUBE SCH (10:02)
[2018-04-25] MEDS: CHLORHEXIDINE 0.12% ORAL RINSE 60 ML BOTTLE SWISH/SPIT SCH (10:03)
[2018-04-25] MEDS: INSULIN REGULAR 100 UNIT/ML SUBCUT SCH ×2 (10:03→11:35)
[2018-04-25] MEDS: ENALAPRIL 5 MG TABLET PO SCH (10:11)
[2018-04-25] MEDS: LACTATED RINGERS 1,000 ML IV SCH (10:11)
[2018-04-25 11:45] VITALS: BP 144/71
== END 2018-04-25 15:55 | disposition swing bed (61) | DRG 236 ==
LOC: N.SDSINP 05:04 → N.CVR 09:03 → N.ICU 04-19 18:55 → N.TELES 04-21 13:12 → N.TELEN 04-24 14:27 → N.TELES 04-24 14:27
PROVIDERS: ADMIT Thoracic Surgery (Cardiothoracic Vascular Surgery); ATTEND Thoracic Surgery (Cardiothoracic Vascular Surgery)

== ENCOUNTER 2018-05-08 11:15 | Observation (INO) ==
[~2018-05-08 11:15] MED LIST changes: +ALUMINUM/MAGNES/SIMETH MAX STR 30 ML UDCUP PO ONE; -SODIUM CHLORIDE 0.9% 1,000 ML IV PRN
[2018-05-08] MEDS ORDERED: KETOROLAC 30 MG/1 ML VIAL IV STA (11:55)
[2018-05-08] MEDS ORDERED: ONDANSETRON 4 MG/2 ML VIAL IV PRN (12:25)
[2018-05-08] MEDS ORDERED: ACETAMINOPHEN 325 MG TABLET PO PRN (12:25)
[2018-05-08] MEDS ORDERED: INFLUENZA VIRUS VACCINE 0.5 ML SYRINGE IM ONE (13:12)
[2018-05-08] MEDS ORDERED: LORATADINE 10 MG TABLET PO ONE (18:06)
[2018-05-08 18:07] LABS: Troponin I 0.025 NG/ML (0.00-0.045)
[2018-05-08] MEDS: DOCUSATE SODIUM 100 MG CAPSULE PO SCH (21:29)
[2018-05-08] MEDS: POTASSIUM CHLORIDE 20 MEQ TABLET PO SCH (21:29)
[2018-05-08] MEDS: INDOMETHACIN 25 MG CAPSULE PO SCH (21:29)
[2018-05-08] MEDS: ATORVASTATIN 40 MG TABLET PO SCH (21:29)
[2018-05-08] MEDS: METOPROLOL TARTRATE 50 MG TABLET PO SCH (21:30)
[2018-05-08] MEDS: COLCHICINE 0.6 MG TABLET PO SCH (21:30)
[2018-05-08] MEDS: LOSARTAN 25 MG TABLET PO SCH (21:30)
[2018-05-08 21:49] LABS: Troponin I 0.031 NG/ML (0.00-0.045)
[2018-05-08] MEDS ORDERED: ALUMINUM/MAGNES/SIMETH MAX STR 30 ML UDCUP PO PRN (22:22)
[2018-05-08] MEDS ORDERED: NITROGLYCERIN SL 0.4 MG TABLET SL PRN (22:23)
[2018-05-09 06:41] LABS: Basophils # 0.1 10*3/uL (0.0-0.2); Basophils % 1.1 % (0.0-0.8); Eosinophils # 0.9 10*3/uL (0.0-0.87); Eosinophils % 11.8 % (0.00-10.9); Hematocrit 31.2 VOL% (42.0-52.0); Immature Granulocytes % 0.4 %; Immature Granulocytes Absolute 0.03 #; Lymphocytes # 1.7 10*3/uL (1.4-4.0); Lymphocytes % 23.5 % (21.2-54.2); Mean Corpuscular HGB Conc 32.1 GM/DL (32-36); Mean Corpuscular Hemoglobin 29 PG (27-34); Mean Corpuscular Volume 90.4 FL (87-102); Mean Platelet Volume 8.6 FL (9.6-12.0); Monocytes # 0.7 10*3/uL (0.11-0.8); Monocytes % 9.6 % (1.7-12.7); Neutrophils # 3.9 10*3/uL (1.4-7.4); Neutrophils % 53.6 % (38.7-73.9); Platelet Count 459 T/CUMM (130-400); Red Blood Count 3.45 MC/CUMM (3.8-5.5); Red Cell Distribution Width 12.8 % (9.3-17.3); White Blood Count 7.3 T/CUMM (4-12)
[2018-05-09] MEDS ORDERED: ALUMINUM/MAGNES/SIMETH MAX STR 30 ML UDCUP PO ONE (07:00)
[2018-05-09 07:07] LABS: Eosinophils 16 % (0-10); Hypochromasia 1+; Lymphocytes 19 % (20-55); Platelet Estimate Adequate; Segmented Neutrophils 52 % (50-85); Total Cells Counted 100
[2018-05-09 07:10] LABS: Osmolality,Calculated 279.5 MOS/KG (273-304); Potassium 4.2 MMOL/L (3.5-5.1)
[2018-05-09] MEDS ORDERED: ZALEPLON 5 MG CAPSULE PO PRN (08:07)
[2018-05-09] MEDS ORDERED: MAGNESIUM HYDROXIDE SUSP 30 ML UDCUP PO PRN (08:07)
[2018-05-09] MEDS ORDERED: SIMETHICONE CHEW 125 MG TABLET PO PRN (08:07)
[2018-05-09] MEDS ORDERED: ASPIRIN 325 MG TABLET PO SCH (09:00)
[2018-05-09] MEDS: PANTOPRAZOLE 40 MG TABLET PO SCH (10:00)
[2018-05-09] MEDS: METOPROLOL TARTRATE 50 MG TABLET PO SCH ×2 (10:00→20:25)
[2018-05-09] MEDS: ASPIRIN EC 81 MG TABLET PO SCH (10:00)
[2018-05-09] MEDS: COLCHICINE 0.6 MG TABLET PO SCH ×2 (10:00→20:25)
[2018-05-09] MEDS: DOCUSATE SODIUM 100 MG CAPSULE PO SCH ×2 (10:00→20:23)
[2018-05-09] MEDS: POTASSIUM CHLORIDE 20 MEQ TABLET PO SCH ×2 (10:00→20:24)
[2018-05-09] MEDS: INDOMETHACIN 25 MG CAPSULE PO SCH ×3 (10:00→20:25)
[2018-05-09] MEDS: LOSARTAN 25 MG TABLET PO SCH ×2 (10:01→20:25)
[2018-05-09] MEDS: FUROSEMIDE 80 MG TABLET PO SCH (10:01)
[2018-05-09] MEDS: LORATADINE 10 MG TABLET PO SCH (10:01)
[2018-05-09] MEDS: ASCORBIC ACID 500 MG TABLET PO SCH ×2 (10:04→20:24)
[2018-05-09] MEDS: ATORVASTATIN 40 MG TABLET PO SCH (20:25)
[2018-05-09] MEDS ORDERED: GABAPENTIN 300 MG CAPSULE PO SCH (21:00)
[2018-05-10 05:13] LABS: Osmolality,Calculated 278.5 MOS/KG (273-304); Potassium 4.3 MMOL/L (3.5-5.1)
[2018-05-10 05:59] LABS: Basophils # 0.1 10*3/uL (0.0-0.2); Eosinophils % 14.3 % (0.00-10.9); Hematocrit 29.6 VOL% (42.0-52.0); Hemoglobin 9.9 GM/DL (14.0-18.0); Immature Granulocytes % 0.3 %; Immature Granulocytes Absolute 0.02 #; Lymphocytes % 28.8 % (21.2-54.2); Mean Corpuscular HGB Conc 33.4 GM/DL (32-36); Mean Corpuscular Hemoglobin 30 PG (27-34); Mean Platelet Volume 8.6 FL (9.6-12.0); Monocytes # 0.7 10*3/uL (0.11-0.8); Monocytes % 9.9 % (1.7-12.7); Neutrophils # 3.1 10*3/uL (1.4-7.4); Neutrophils % 45.7 % (38.7-73.9); Platelet Count 428 T/CUMM (130-400); Red Blood Count 3.29 MC/CUMM (3.8-5.5); Red Cell Distribution Width 12.7 % (9.3-17.3); White Blood Count 6.8 T/CUMM (4-12)
[2018-05-10 06:16] LABS: Eosinophils 20 % (0-10); Lymphocytes 25 % (20-55); Segmented Neutrophils 49 % (50-85); Total Cells Counted 100
[2018-05-10 06:17] LABS: Hypochromasia 1+; Platelet Estimate Adequate
[2018-05-10 07:57] VITALS: BP 143/77
[2018-05-10] MEDS: COLCHICINE 0.6 MG TABLET PO SCH (08:45)
[2018-05-10] MEDS: ASPIRIN EC 81 MG TABLET PO SCH (08:45)
[2018-05-10] MEDS: INDOMETHACIN 25 MG CAPSULE PO SCH (08:45)
[2018-05-10] MEDS: FUROSEMIDE 80 MG TABLET PO SCH (08:46)
[2018-05-10] MEDS: LOSARTAN 25 MG TABLET PO SCH (08:46)
[2018-05-10] MEDS: DOCUSATE SODIUM 100 MG CAPSULE PO SCH (08:46)
[2018-05-10] MEDS: METOPROLOL TARTRATE 50 MG TABLET PO SCH (08:46)
[2018-05-10] MEDS: POTASSIUM CHLORIDE 20 MEQ TABLET PO SCH (08:46)
[2018-05-10] MEDS: LORATADINE 10 MG TABLET PO SCH (08:46)
[2018-05-10] MEDS: PANTOPRAZOLE 40 MG TABLET PO SCH (08:46)
[2018-05-10] MEDS: ASCORBIC ACID 500 MG TABLET PO SCH (08:46)
== END 2018-05-10 12:04 | disposition swing bed (61) ==
LOC: EDBD → EDUNIT# → N.ED 11:15 → N.EDINP 11:15 → N.2W 12:08 → N.TELES 13:59
PROVIDERS: ADMIT Family Medicine; ATTEND Family Medicine